=== PATIENT | male | born 1975 | race Caucasian/White ===

== ENCOUNTER 2018-09-16 15:52 | Emergency (ER) | payer OTHER ==
[~2018-09-16] VITALS: Ht 172.7 cm; Wt 69.9 kg
[~2018-09-16 15:52] MED LIST: CLONAZEPAM2 MG; IBUPROFEN800 MG PO; WELLBUTRIN XL150 M1
== END 2018-09-16 21:27 | disposition home or self-care (01) ==
LOC: ER 15:52
DX: R42 Dizziness and giddiness (principal)

== ENCOUNTER 2020-08-12 10:33 | Emergency (ER) | payer OTHER ==
[~2020-08-12] VITALS: Ht 172.7 cm; Wt 72.6 kg
[2020-08-12] MEDS ORDERED: CLONAZEPAM1 MG (10:52)
[2020-08-12] MEDS ORDERED: NORFLEX100MG PO (14:08)
[2020-08-12] MEDS ORDERED: KETO10TA2 PO (14:08)
[2020-08-12] MEDS ORDERED: MEDROLPACK PO (14:12)
== END 2020-08-12 14:25 | disposition home or self-care (01) ==
LOC: ER 10:33
DX: M54.5 Low back pain (principal)

== ENCOUNTER 2022-07-30 12:14 | Inpatient (IN) | payer OTHER ==
[~2022-07-30] VITALS: Ht 172.7 cm; Wt 69.4 kg
[~2022-07-30 12:14] MED LIST changes: +CLONAZEPAM1 MG; +KETO10TA2 PO; +MEDROLPACK PO; +NORFLEX100MG PO
[2022-07-30] MEDS ORDERED: CLONAZEPAM2 M1 PO (13:06)
[2022-08-03] MEDS ORDERED: ECOTRIN81 MG PO (15:25)
== END 2022-08-03 22:49 | disposition home or self-care (01) | DRG 57 ==
LOC: ER 12:14 → MEDJ 07-31 17:43
PROVIDERS: ADMIT Internal Medicine; ATTEND Internal Medicine
PROC: B030YZZ Magnetic Resonance Imaging (MRI) of Brain using Other Contrast (ICD-10-PCS; principal; 2022-07-31)
PROC: B030ZZZ Magnetic Resonance Imaging (MRI) of Brain (ICD-10-PCS; 2022-07-31)
PROC: B345ZZZ Ultrasonography of Bilateral Common Carotid Arteries (ICD-10-PCS; 2022-07-31)
PROC: BR37ZZZ Magnetic Resonance Imaging (MRI) of Thoracic Spine (ICD-10-PCS; 2022-07-31)
PROC: BR30YZZ Magnetic Resonance Imaging (MRI) of Cervical Spine using Other Contrast (ICD-10-PCS; 2022-07-31)
PROC: 4A12X4Z Monitoring of Cardiac Electrical Activity, External Approach (ICD-10-PCS; 2022-08-01)
PROC: BR30ZZZ Magnetic Resonance Imaging (MRI) of Cervical Spine (ICD-10-PCS; 2022-08-02)
PROC: BR39ZZZ Magnetic Resonance Imaging (MRI) of Lumbar Spine (ICD-10-PCS; 2022-08-02)
DX: G81.94 Hemiplegia, unspecified affecting left nondominant side (principal); D75.1 Secondary polycythemia; M51.36 Other intervertebral disc degeneration, lumbar region; M48.062 Spinal stenosis, lumbar region with neurogenic claudication; R29.898 Other symptoms and signs involving the musculoskeletal system; R94.6 Abnormal results of thyroid function studies; F44.4 Conversion disorder with motor symptom or deficit; Z20.822 Contact with and (suspected) exposure to COVID-19
CPT/HCPCS: 70552; 72142; 72147; 72149; 72157

== ENCOUNTER 2022-08-16 08:23 | Outpatient (CLI) | payer OTHER ==
[~2022-08-16 08:23] MED LIST changes: +CLONAZEPAM2 M1 PO; +ECOTRIN81 MG PO
== END 2022-08-16 08:33 | disposition home or self-care (01) ==
LOC: NUCLEAR 08:23
PROVIDERS: ATTEND Internal Medicine
DX: I87.2 Venous insufficiency (chronic) (peripheral) (principal); R00.1 Bradycardia, unspecified; Z88.0 Allergy status to penicillin; Z88.8 Allergy status to other drugs, medicaments and biological substances

== ENCOUNTER 2024-09-23 09:00 | Outpatient (CLI) | payer OTHER | END 2024-09-23 09:17 | disposition home or self-care (01) | LOC: MRI 09:00 | PROVIDERS: ATTEND Internal Medicine Hematology & Oncology | DX: M25.561 Pain in right knee (principal); R10.9 Unspecified abdominal pain; R16.1 Splenomegaly, not elsewhere classified; R18.8 Other ascites | CPT/HCPCS: 73721 ==

== ENCOUNTER → 2025-04-01 07:28 | Outpatient (CLI) | payer OTHER | END | disposition home or self-care (01) | LOC: NUCLEAR 07:00 | PROVIDERS: ATTEND Internal Medicine | DX: E03.8 Other specified hypothyroidism (principal) ==